=== PATIENT | male | born 2000 | race Caucasian/White ===

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

== ENCOUNTER 2018-01-19 22:47 | Emergency (ER) | payer MEDICAID ==
[2018-01-19 22:55] VITALS: BP 147/89
[2018-01-20] MEDS ORDERED: Ketorolac INJ* 60 MG/2 ML VIAL IM ONE (00:19)
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
== END 2018-01-20 00:52 | disposition home or self-care (01) ==
LOC: ED 22:47
DX: R51 Headache (principal); F17.200 Nicotine dependence, unspecified, uncomplicated
CPT/HCPCS: 96372; 99283; J1885

== ENCOUNTER 2018-01-31 17:28 | Emergency (ER) | payer MEDICAID ==
[2018-01-31] MEDS ORDERED: hydrOXYzine HCL TAB* 50 MG PO ONE (18:03)
[2018-01-31 18:16] LABS: Urine Appearance Clear; Urine Blood Negative (Negative); Urine Color Yellow; Urine Ketones Trace (Negative); Urine Protein Negative (Negative); Urine Specific Gravity 1.025 (1.010-1.030); Urine Urobilinogen Negative (Negative)
[2018-01-31 18:20] LABS: ABS Basophils 0 10^3/ul (0-0.2); ABS Eosinophils 0.1 10^3/ul (0-0.6); ABS Lymphocytes 2.1 10^3/ul (1.0-4.8); ABS Monocytes 0.8 10^3/ul (0-0.8); ABS Neutrophils 7.6 10^3/ul (1.5-7.7); ABS Nucleated RBC 0 10^3/ul; Eosinophil % 1.3 % (0-6); Hematocrit 48 % (42-52); Hemoglobin 16.7 g/dl (14.0-18.0); Lymphocyte % 19.8 % (25-47); Mean Corpuscular HGB Conc 35 g/dl (31-36); Mean Corpuscular Hemoglobin 30 pg (27-31); Mean Corpuscular Volume 87 fL (80-94); Mean Platelet Volume 9.8 um3 (7.4-10.4); Nucleated Red Blood Cells % 0; Platelet Count 165 10^3/ul (150-450); Red Blood Count 5.56 10^6/ul (4.00-5.40); Red Cell Distribution Width 13 % (10.5-15); White Blood Count 10.7 10^3/ul (3.5-10.8)
[2018-01-31 18:39] LABS: EGFR Non-African American 111.6 (>60)
[2018-01-31 21:36] VITALS: BP 0/0
--- NOTE | 2018-01-31 21:38 | ED ---
Greg Haas Tariq, scribed for Colt Sawyer MD on 01/31/18 at 2131 . Progress - Consult/PCP Time Called: 19:00 Course/Dx - Diagnoses Provider Diagnoses: Unspecified mood [affective] disorder - Provider Notifications Discussed Care Of Patient With: Kuldeep Devries Discharge - Sign-Out/Discharge Documenting (check all that apply): Discharge/Admit/Transfer - DISCHARGE - Discharge Plan Condition: Stable Disposition: HOME Patient Education Materials: Mood Disorders (ED) Additional Instructions: RETURN TO ED FOR ANY NEW OR WORSENING SYMPTOMS. The documentation as recorded by the Greg haywood Tariq accurately reflects the service I personally performed and the decisions made by Digna barnes Abdul, MD.
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
== END 2018-01-31 21:30 | disposition home or self-care (01) ==
LOC: ED 17:28
DX: F39 Unspecified mood [affective] disorder (principal); F32.9 Major depressive disorder, single episode, unspecified; F17.210 Nicotine dependence, cigarettes, uncomplicated
CPT/HCPCS: 36415; 80053; 80307; 80320; 80329; 81003; 84443; 85025; 99284; A9270-GY; G0480

== ENCOUNTER 2018-01-31 22:33 | Emergency (ER) | payer MEDICAID ==
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
--- NOTE | 2018-02-01 09:38 | ED ---
Progress - Progress Note Progress Note: This pt was signed out by Dr. Sawyer at shift change, pending disposition, awaiting MHE. Pt had a mental health evaluation and was seen by Dr. Torres, psychiatrist. Dr. Torres offered voluntary admission but pt declines, pt would like to be transferred to a facility where he can have 6 month hospitalization. Pt will be discharged home with outpatient follow up at [facility]. Course/Dx - Diagnoses Provider Diagnoses: Mood disorder Discharge - Sign-Out/Discharge Documenting (check all that apply): Patient Departure - Discharge, Receiving Sign-Out Receiving patient FROM: Colt Sawyer - Discharge Plan Condition: Stable Disposition: HOME Referrals: No Primary Care Phys,NOPCP [Primary Care Provider] - - Billing Disposition and Condition Condition: STABLE Disposition: Home
[2018-02-01 13:13] VITALS: BP 138/73
== END 2018-02-01 12:00 | disposition home or self-care (01) ==
LOC: ED 22:33
DX: F39 Unspecified mood [affective] disorder (principal); F17.210 Nicotine dependence, cigarettes, uncomplicated
CPT/HCPCS: 99285

== ENCOUNTER 2019-01-26 10:04 | Emergency (ER) | payer MEDICAID ==
[2019-01-26] MEDS ORDERED: NS 0.9% 1000 ML** 1,000 ML IV ONE (10:43)
[2019-01-26] MEDS ORDERED: Ketorolac INJ* 30 MG/ML 1 ML VIAL IV ONE (10:43)
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
[2019-01-26 11:44] LABS: ABS Eosinophils 0.2 10^3/ul (0-0.6); ABS Lymphocytes 1.6 10^3/ul (1.0-4.8); ABS Monocytes 0.7 10^3/ul (0-0.8); ABS Neutrophils 5.2 10^3/ul (1.5-7.7); Eosinophil % 2.5 %; Hematocrit 48 % (42-52); Hemoglobin 15.9 g/dL (14.0-18.0); Lymphocyte % 20.9 %; Mean Corpuscular HGB Conc 33 g/dL (31-36); Mean Corpuscular Hemoglobin 30 pg (27-31); Mean Corpuscular Volume 88 fL (80-94); Mean Platelet Volume 9.3 fL (7.4-10.4); Nucleated Red Blood Cells % 0.1; Platelet Count 152 10^3/uL (150-450); Red Blood Count 5.39 10^6 /uL (4.18-5.48); Red Cell Distribution Width 14 % (10-15); White Blood Count 7.7 10^3/uL (3.5-10.8)
[2019-01-26 12:01] LABS: Albumin 4.3 g/dL (3.2-5.2); Albumin/Globulin Ratio 1.9 (1-3); BUN/Creatinine Ratio 20.3 (8-20); Calcium 9.4 mg/dL (8.6-10.3); EGFR African American 151.3 (>60); Globulin 2.3 g/dL (2-4); Potassium 4.7 mmol/L (3.5-5.0); Total Bilirubin 0.4 mg/dL (0.2-1.0); Total Protein 6.6 g/dL (6.4-8.9)
[2019-01-26 13:06] LABS: Erythrocyte Sed Rate 0 mm/Hr (0-14)
[2019-01-26 13:07] VITALS: BP 110/83
== END 2019-01-26 13:26 | disposition home or self-care (01) ==
LOC: ED 10:04
DX: R51 Headache (principal); H53.8 Other visual disturbances; F17.200 Nicotine dependence, unspecified, uncomplicated
CPT/HCPCS: 36415; 80053; 82375; 83605; 85025; 85652; 96361; 96374; 99283; J1885

== ENCOUNTER 2019-07-27 23:06 | Emergency (ER) | payer MEDICAID ==
[2019-07-27] MEDS ORDERED: Al Hydrox/Mg Hydrox/Simet LIQ* 30 ML UDC PO ONE (23:49)
[2019-07-27] MEDS ORDERED: Lidocaine 2% VISCOUS* 15 ML UDC PO ONE (23:49)
[2019-07-27] MEDS ORDERED: Ketorolac INJ* 30 MG/ML 1 ML VIAL IV PUSH ONE (23:50)
[2019-07-28 00:23] LABS: ABS Basophils 0.1 10^3/ul (0-0.2); ABS Eosinophils 0.4 10^3/ul (0-0.6); ABS Lymphocytes 2.9 10^3/ul (1.0-4.8); ABS Monocytes 0.9 10^3/ul (0-0.8); ABS Neutrophils 7.1 10^3/ul (1.5-7.7); Eosinophil % 3.7 %; Hematocrit 47 % (42-52); Hemoglobin 16.1 g/dL (14.0-18.0); Lymphocyte % 25.4 %; Mean Corpuscular HGB Conc 34 g/dL (31-36); Mean Corpuscular Hemoglobin 31 pg (27-31); Mean Corpuscular Volume 89 fL (80-94); Mean Platelet Volume 9.2 fL (7.4-10.4); Platelet Count 197 10^3/uL (150-450); Red Blood Count 5.26 10^6 /uL (4.18-5.48); Red Cell Distribution Width 14 % (10-15); White Blood Count 11.3 10^3/uL (3.5-10.8)
--- NOTE | 2019-07-28 00:35 | ED ---
HPI Chest Pain - HPI Summary HPI Summary: 18 year old male presents with chest pain today. He took some ibuprofen and Excedrin without any relief. An aspirin and nitroglycerin by EMS with no relief. He states that pain radiates to his abdomen. Denies any nausea vomiting. Has had this pain before. States that it is sharp. He states that does radiate to his back. Has no cardiac history. Denies any family cardiac history. States he does have family history of blood clots. He does smoke cigarettes and marijuana. He denies any drug use. He denies any recent illness. He got in an argument when his pain started. - History of Current Complaint Chief Complaint: EDChestPainROMI Time Seen by Provider: 07/27/19 23:43 Pain Intensity: 9 - Allergy/Home Medications Allergies/Adverse Reactions: Allergies Allergy/AdvReac Type Severity Reaction Status Date / Time No Known Allergies Allergy Verified 01/26/19 10:11 PMH/Surg Hx/FS Hx/Imm Hx Endocrine/Hematology History: Denies: Hx Anticoagulant Therapy, Hx Thyroid Disease, Hx Anemia Cardiovascular History: Reports: Hx Hypertension - "sometimes" - no meds Respiratory History: Reports: Hx Asthma, Hx Seasonal Allergies Sensory History: Reports: Hx Contacts or Glasses Opthamlomology History: Reports: Hx Contacts or Glasses Psychiatric History: Reports: Hx Attention Deficit Hyperactivity Disorder, Hx Bipolar Disorder, Hx of Violent Episodes Against Others, Other Psychiatric Issues/Disorders - h/o self-harm, insomnia Denies: Hx Eating Disorder - Surgical History Surgery Procedure, Year, and Place: none Infectious Disease History: No Infectious Disease History: Denies: Hx Clostridium Difficile, Hx Hepatitis, Hx Human Immunodeficiency Virus (HIV), Hx of Known/Suspected MRSA, Hx Shingles, Hx Tuberculosis, Hx Known/ Suspected VRE, Hx Known/Suspected VRSA, History Other Infectious Disease, Traveled Outside the [place] in Last 30 Days - Family History Known Family History: Positive: Diabetes - Social History Alcohol Use: None Hx Substance Use: Yes Substance Use Type: Reports: Excessive Caffeine, Marijuana Hx Tobacco Use: Yes Smoking Status (MU): Current Every Day Smoker Amount Used/How Often: >1 PPD Have You Smoked in the Last Year: Yes Review of Systems Negative: Fever Positive: Chest Pain Negative: Shortness Of Breath Positive: Abdominal Pain. Negative: Vomiting All Other Systems Reviewed And Are Negative: Yes Physical Exam Triage Information Reviewed: Yes Vital Signs On Initial Exam: Initial Vitals Pulse Resp BP Pulse Ox 98 16 147/83 98 07/27/19 23:14 07/27/19 23:14 07/27/19 23:14 07/27/19 23:14 Vital Signs Reviewed: Yes Appearance: Positive: Well-Appearing Skin: Positive: Warm, Dry Head/Face: Positive: Normal Head/Face Inspection Eyes: Positive: Normal, Conjunctiva Clear ENT: Positive: Pharynx normal Respiratory/Lung Sounds: Positive: Clear to Auscultation, Breath Sounds Present , Other - reproducible chest pain Cardiovascular: Positive: Normal, RRR Abdomen Description: Positive: Soft, Other: - tenderness in LUQ Bowel Sounds: Positive: Present Musculoskeletal: Positive: Normal Neurological: Positive: Normal Psychiatric: Positive: Normal Procedures - Sedation Patient Received Moderate/Deep Sedation with Procedure: No Diagnostics - Vital Signs Vital Signs Temp Pulse Resp BP Pulse Ox 07/28/19 00:14 91 14 98 07/28/19 00:00 82 17 98 07/27/19 23:44 79 12 116/91 98 07/27/19 23:32 99.1 F 92 17 147/83 98 07/27/19 23:15 94 17 97 07/27/19 23:14 98 16 147/83 98 - Laboratory Lab Results: Lab Results 07/28/19 Range/Units 00:17 WBC 11.3 H (3.5-10.8) 10^3/uL RBC 5.26 (4.18-5.48) 10^6 /uL Hgb 16.1 (14.0-18.0) g/dL Hct 47 (42-52) % MCV 89 (80-94) fL MCH 31 (27-31) pg MCHC 34 (31-36) g/dL RDW 14 (10-15) % Plt Count 197 (150-450) 10^3/uL MPV 9.2 (7.4-10.4) fL Neut % (Auto) 62.6 % Lymph % (Auto) 25.4 % [place]atte % (Auto) 7.8 % Eos % (Auto) 3.7 % Baso % (Auto) 0.5 % Absolute Neuts (auto) 7.1 (1.5-7.7) 10^3/ul Absolute Lymphs (auto) 2.9 (1.0-4.8) 10^3/ul Absolute Monos (auto) 0.9 H (0-0.8) 10^3/ul Absolute Eos (auto) 0.4 (0-0.6) 10^3/ul Absolute Basos (auto) 0.1 (0-0.2) 10^3/ul Absolute Nucleated RBC 0.0 10^3/ul Nucleated RBC % 0.0 Result Diagrams: 07/28/19 00:17 07/28/19 00:17 Lab Statement: Any lab studies that have been ordered have been reviewed, and results considered in the medical decision making process. - Radiology chest Radiology Interpretation Completed By: ED Physician Summary of Radiographic Findings: no active disease - EKG No standard instances Cardiac Rate: NL EKG Rhythm: Sinus Rhythm EKG Comparison: No Significant Change Summary of EKG Findings: sinus rhythm Chest Pain Course/Dx - Course Course Of Treatment: 18 year old male presents with chest pain today. He took some ibuprofen and Excedrin without any relief. An aspirin and nitroglycerin by EMS with no relief. He states that pain radiates to his abdomen. Denies any nausea vomiting. Has had this pain before. States that it is sharp. He states that does radiate to his back. Has no cardiac history. Denies any family cardiac history. States he does have family history of blood clots. He does smoke cigarettes and marijuana. He denies any drug use. He denies any recent illness. On exam reproducible chest pain and left upper quadrant pain. EKG shows sinus rhythm. wbc normal. crp normal. troponin zero. d-dimer neg. heart score 2. pain is likely chest wall. told follow up with primary. patient understand and agrees with plan. - Chest Pain Differential Diagnosis/HQI/PQRI: Chest Wall, Lower Respiratory Infection, Pulmonary Embolism - Diagnoses Provider Diagnoses: Chest wall pain Discharge ED - Sign-Out/Discharge Documenting (check all that apply): Patient Departure - Discharge Plan Condition: Good Disposition: HOME Patient Education Materials: Chest Wall Pain (ED) Referrals: [facility] [Outside] Additional Instructions: Take tyenlol or ibuprofen every 6 hours for pain Follow up with primary within 5 days Return to ED if develop any new or worsening symptoms - Billing Disposition and Condition Condition: GOOD Disposition: Home
[2019-07-28 00:46] LABS: ALT 13 U/L (7-52); AST 17 U/L (13-39); Albumin 4.4 g/dL (3.2-5.2); Albumin/Globulin Ratio 1.6 (1-3); Alkaline Phosphatase 56 U/L (34-104); Anion Gap 6 mmol/L (2-11); BUN/Creatinine Ratio 23.9 (8-20); Blood Urea Nitrogen 17 mg/dL (6-24); C Reactive Protein < 1.00 mg/L (<8.01); CO2 Carbon Dioxide 25 mmol/L (22-32); Calcium 9.5 mg/dL (8.6-10.3); Chloride 106 mmol/L (101-111); EGFR African American 171.1 (>60); EGFR Non-African American 141.4 (>60); Globulin 2.8 g/dL (2-4); Glucose 99 mg/dL (70-100); Sodium 137 mmol/L (135-145); Total Protein 7.2 g/dL (6.4-8.9)
[2019-07-28 01:19] VITALS: BP 111/65
== END 2019-07-28 01:22 | disposition home or self-care (01) ==
LOC: ED 23:06
DX: R07.89 Other chest pain (principal); R10.9 Unspecified abdominal pain; I10 Essential (primary) hypertension; F90.9 Attention-deficit hyperactivity disorder, unspecified type; F17.210 Nicotine dependence, cigarettes, uncomplicated
CPT/HCPCS: 36415; 71045; 80053; 83605; 84484; 85025; 85379; 86140; 93005; 99284; A9270-GY; J1885

== ENCOUNTER 2019-09-27 19:32 | Emergency (ER) | payer MEDICAID ==
--- NOTE | 2019-09-27 20:00 | ED ---
Upper Extremity Pain - HPI Summary HPI Summary: 18-year-old male with no significant past medical history presents to the emergency department today complaining of right shoulder pain which started approximately one hour ago. Patient states she was attempting to stop from falling when he caught them and they pulled on his right arm causing him to have right shoulder pain. Patient endorses 8 out of 10 right shoulder pain with decreased range of motion due to pain. Patient is neurovascularly intact throughout the bilateral upper extremities. There is no ecchymosis, erythema, edema or deformity noted. Patient has not taken any medication prior to arrival. Patient is otherwise well and denies fever, chest and abdominal pain, tenderness, rash, nausea, vomiting, diarrhea. - History of Current Complaint Chief Complaint: EDShoulderClavicEdisonj Stated Complaint: R ARM PAIN PER PT Time Seen by Provider: 09/27/19 19:51 Hx Obtained From: Patient Mechanism Of Injury: Twisted, Incised Onset/Duration: Started Hours Ago Timing: Constant Severity Initially: Moderate Severity Currently: Moderate Pain Location: Shoulder Character: Aching Aggravating Factor(s): Lifting, Flexion, Extension, Internal/External Rotation, Abduction, Adduction Alleviating Factor(s): Rest Associated Signs & Symptoms: Negative: Swelling, Redness, Bruising, Numbness/ Tingling - Allergies/Home Medications Allergies/Adverse Reactions: Allergies Allergy/AdvReac Type Severity Reaction Status Date / Time No Known Allergies Allergy Verified 01/26/19 10:11 Home Medications: Home Medications NK [No Home Medications Reported] 01/19/18 [History Confirmed 09/27/19] PMH/Surg Hx/FS Hx/Imm Hx Endocrine/Hematology History: Denies: Hx Anticoagulant Therapy, Hx Thyroid Disease, Hx Anemia Cardiovascular History: Reports: Hx Hypertension - "sometimes" - no meds Respiratory History: Reports: Hx Asthma, Hx Seasonal Allergies Sensory History: Reports: Hx Contacts or Glasses Opthamlomology History: Reports: Hx Contacts or Glasses Psychiatric History: Reports: Hx Attention Deficit Hyperactivity Disorder, Hx Bipolar Disorder, Hx of Violent Episodes Against Others, Other Psychiatric Issues/Disorders - h/o self-harm, insomnia Denies: Hx Eating Disorder - Surgical History Surgery Procedure, Year, and Place: none Infectious Disease History: No Infectious Disease History: Denies: Hx Clostridium Difficile, Hx Hepatitis, Hx Human Immunodeficiency Virus (HIV), Hx of Known/Suspected MRSA, Hx Shingles, Hx Tuberculosis, Hx Known/ Suspected VRE, Hx Known/Suspected VRSA, History Other Infectious Disease, Traveled Outside the [place] in Last 30 Days - Family History Known Family History: Positive: Diabetes - Social History Alcohol Use: None Hx Substance Use: Yes Substance Use Type: Reports: Excessive Caffeine, Marijuana Hx Tobacco Use: Yes Smoking Status (MU): Current Every Day Smoker Amount Used/How Often: >1 PPD Have You Smoked in the Last Year: Yes Review of Systems Constitutional: Negative Eyes: Negative ENT: Negative Cardiovascular: Negative Respiratory: Negative Gastrointestinal: Negative Genitourinary: Negative Positive: Arthralgia, Myalgia. Negative: Decreased ROM Skin: Negative Neurological/Mental Status: Negative Psychological: Normal All Other Systems Reviewed And Are Negative: Yes Physical Exam - Summary Physical Exam Summary: Patient was in no acute distress. Patient had full range of motion the shoulder bilaterally. Patient was neurovascularly intact bilaterally. Patient had no pain with palpation of the shoulder bilaterally. No evidence of deformity, ecchymosis, erythema, edema. Triage Information Reviewed: Yes Vital Signs On Initial Exam: Initial Vitals Temp Pulse Resp BP Pulse Ox 99.8 F 57 20 147/86 96 09/27/19 19:39 09/27/19 19:39 09/27/19 19:39 09/27/19 19:39 09/27/19 19:39 Vital Signs Reviewed: Yes Appearance: Positive: Well-Appearing, No Pain Distress, Well-Nourished Skin: Positive: Warm, Skin Color Reflects Adequate Perfusion Eyes: Positive: EOMI, TERRI ENT: Positive: Hearing grossly normal Respiratory/Lung Sounds: Positive: Clear to Auscultation, Breath Sounds Present Cardiovascular: Positive: RRR, S1, S2 Musculoskeletal: Positive: Strength/ROM Intact Neurological: Positive: Sensory/Motor Intact, Alert, Oriented to Person Place, Time, Normal Gait, Facial Symmetry, Speech Normal Psychiatric: Positive: Normal, Affect/Mood Appropriate AVPU Assessment: Alert Procedures - Sedation Patient Received Moderate/Deep Sedation with Procedure: No Diagnostics - Vital Signs Vital Signs Temp Pulse Resp BP Pulse Ox 09/27/19 19:39 99.8 F 57 20 147/86 96 - Laboratory Lab Statement: Any lab studies that have been ordered have been reviewed, and results considered in the medical decision making process. Course/Dx - Course Course Of Treatment: Patient was evaluated in the emergency department today for shoulder pain. Patient was neurovascularly intact. Physical exam consistent with muscle strain of the shoulder. X-ray was done which showed no evidence of fracture or dislocation. Patient given ibuprofen and discharged outpatient follow-up with diagnosis of muscle strain. - Diagnoses Differential Diagnosis/HQI/PQRI: Positive: Arthritis, Fracture (Closed), Strain , Sprain Provider Diagnoses: Shoulder pain Discharge ED - Sign-Out/Discharge Documenting (check all that apply): Patient Departure - Discharge Plan Condition: Stable Disposition: HOME Patient Education Materials: Shoulder Pain (ED) Referrals: [facility] [Outside] - 4 Days No Primary Care Phys,[facility]OPCP [Primary Care Provider] - Additional Instructions: You were seen in the emergency department today for shoulder pain. Please follow up with [facility] in 4 days for further evaluation and management of your injury. For further alleviation of your symptoms please practice R.I.C.E therapy. Rest, Ice, compress, elevate the affected area. * Ibuprofen 600mg three times daily with meals for pain. * If numbness, tingling, decreased sensation, increased pain, temperature changes or pallor noted in toes, come back to ER immediately. * Protect the area. For your comfort level, do not bear weight, pull or push until you can injury is somewhat healed. This may involve the need for immobilization or crutches for a period of time. * Rest the involved area, but not too long. You may need to be off your injury for some time to allow for healing, however excessive immobilization of joints can lead to stiffness and delay healing time. Early mobilization is encouraged if it is pain-free. * Ice: Not directly on the skin. Cover with a towel. Apply ice no more than 30 minutes at a time * Compression: You may use and keep an hilario wrap bandage over the injury to decrease swelling. Again, this should be limited and be taken off periodically to encourage early range of motion and mobilization. * Elevate: Try to elevate the injured area above the heart whenever possible, Especially during sleep. - Billing Disposition and Condition Condition: STABLE Disposition: Home - Attestation Statements Document Initiated by Scribe: Yes Documenting Scribe: venkata caceres Provider For Whom Scribe is Documenting (Include Credential): maria isabel Cesar Attestation: Ivenkata, scribed for maria isabel sandovla on 10/02/19 at 1921. Scribe Documentation Reviewed: Yes Provider Attestation: The documentation as recorded by the scribe, venkata caceres accurately reflects the service I personally performed and the decisions made by me, maria isabel sandoval Status of Scribe Document: Ready
[2019-09-27] MEDS ORDERED: Ibuprofen TAB* 600 MG PO ONE (21:51)
[2019-09-27 22:10] VITALS: BP 143/80
== END 2019-09-27 22:10 | disposition home or self-care (01) ==
LOC: ED 19:32
DX: M25.511 Pain in right shoulder (principal); F17.210 Nicotine dependence, cigarettes, uncomplicated; I10 Essential (primary) hypertension; F90.9 Attention-deficit hyperactivity disorder, unspecified type
CPT/HCPCS: 99282; A9270-GY